=== PATIENT | male | born 1970 | race African-American/Black ===

== ENCOUNTER 2017-08-18 09:02 | Emergency (ER) | payer OTHER ==
[~2017-08-18] VITALS: Ht 167.6 cm; Wt 91.5 kg
[2017-08-18 09:41] LABS: HEMATOCRIT 46.2 % (38.0-50.0); MCHC 32.9 G/DL (30.0-36.0); MCV 81.9 FL (86-99); PLATELET COUNT 139 K/uL (156-360); RBC DIS.WIDTH-CV 13.2 % (11.8-14.6); RBC DIS.WIDTH-SD 39.4 % (39-53); RED BLOOD COUNT 5.64 M/uL (4.00-5.50); WHITE BLOOD COUNT 4.6 K/uL (4.1-10.2)
[2017-08-18 09:53] LABS: CHLORIDE 108 mEq/L (99-109); POTASSIUM 4.2 mEq/L (3.7-5.4); SODIUM 140 mEq/L (136-147)
[2017-08-18 09:55] LABS: GLUCOSE 98 mg/dL (70-99)
[2017-08-18 09:56] LABS: ANION GAP 7 MEQ/L (2-14)
[2017-08-18 09:57] LABS: TOTAL BILIRUBIN 0.7 mg/dL (0.0-1.0)
[2017-08-18 09:59] LABS: ALKALINE PHOSPHATASE 131 IU/L (3-129); GFR ESTIMATE (CALCULATED) > 59 mL/min/
[2017-08-18 10:00] LABS: UREA NITROGEN (BUN) 14 mg/dL (9-23)
[2017-08-18 10:02] LABS: LIPASE 37 U/L (1.0-51.0)
[2017-08-18 10:57] LABS: ADD MIUA? NO; BILIRUBIN NEGATIVE; BLOOD NEGATIVE; COLOR YELLOW ((YELLOW)); GLUCOSE (STRIP) NEGATIVE; KETONES NEGATIVE; LEUKOCYTES NEGATIVE; NITRITE NEGATIVE; PROTEIN (STRIP) NEGATIVE; SPECIFIC GRAVITY 1.017 (1.000-1.030); UCUL ADDED? NO; UROBILINOGEN 0.2 MG/DL (0.2-1.0)
[2017-08-18] MEDS ORDERED: ZOFRAN ODT4 MG PO (12:14)
[2017-08-18] MEDS ORDERED: BENTYL20 MG PO (12:14)
[2017-08-18 12:28] VITALS: BP 129/77
== END 2017-08-18 12:28 | disposition home or self-care (01) ==
LOC: EME 09:02
PROVIDERS: Nurse Practitioner Family
DX: R11.0 Nausea (principal); R14.0 Abdominal distension (gaseous); E11.9 Type 2 diabetes mellitus without complications
CPT/HCPCS: 74020; 80053; 81003; 83690; 85027; 99281; 99284; J2405; J7030